=== PATIENT | male | born 1960 | race Caucasian/White ===

== ENCOUNTER 2016-03-31 16:02 | Inpatient (IN) ==
[2016-03-31] MEDS ORDERED: 0.9 % Sodium Chloride 1,000 ML IVC ONE (16:11)
--- NOTE | 2016-03-31 16:11 | Emergency Department Note ---
Disposition Clinical Impression: Acute diverticulitis Disposition: Admitted As Inpatient Condition: Good Time of Disposition: 16:53 Abdominal Pain HPI - General Chief Complaint: ED Abdominal Pain Stated Complaint: Abdominal Pain Time Seen by Provider: 03/31/16 16:06 Source: patient, EMS Limitations: no limitations Nursing Notes Reviewed: Yes Vital Signs Reviewed: Yes - History of Present Illness HPI Narrative: 56-year-old 3 day history of abdominal pain. No history of abdominal complaints in the past. Pt Subjective Complaint: abdominal pain Onset (ago): day(s) Consistency: constant Location: diffuse (3) Pain Scale: 6 Quality: cramping, aching Radiation: none Migration to: no migration Improves with: nothing - Related Data Home Medications Medication Instructions Recorded Confirmed Escitalopram [Lexapro] 10 mg PO DAILY 07/26/15 03/31/16 Cholecalciferol (D-3) [Vitamin D] 5,000 unit PO DAILY 03/31/16 03/31/16 Flaxseed Oil 1,000 mg PO DAILY 03/31/16 03/31/16 Metoprolol XL (24 HR) Succ [Toprol 25 mg PO DAILY 03/31/16 03/31/16 XL] Multivit-Min/FA/Lycopen/Lutein 1 each PO DAILY 03/31/16 03/31/16 [Centrum Silver Men Tablet] Polyethylene Glycol 3350 [MiraLAX] 17 gm PO 1-2XD PRN 03/31/16 03/31/16 Previous Rx's Medication Instructions Recorded Aspirin Enteric Coated [Aspirin EC] 81 mg PO DAILY #30 tablet. 07/28/15 Atorvastatin [Lipitor] 40 mg PO HS #30 tablet 07/28/15 Clopidogrel [Plavix] 75 mg PO DAILY #30 tablet 07/28/15 Lisinopril [Zestril] 2.5 mg PO DAILY #30 tablet 07/28/15 Nitroglycerin 0.4 mg SL Q5MIN PRN #30 tab.subl 07/28/15 Allergies Allergy/AdvReac Type Severity Reaction Status Date / Time No Known Allergies Allergy Verified 07/26/15 05:30 Constitutional: Denies: fever, chills, weakness, weight change Eyes: Denies: eye pain, eye discharge, vision change ENT ED: Denies: ear pain, throat pain, dental pain, hearing loss, epistaxis, congestion, dysphagia Cardiovascular: Denies: chest pain, palpitations, dyspnea on exertion, edema, syncope Respiratory: Denies: cough, dyspnea, wheezes, hemoptysis, stridor Gastrointestinal: Reports: abdominal pain. Denies: nausea, vomiting, diarrhea, constipation, hematemesis, melena, hematochezia Genitourinary: Denies: urgency, dysuria, frequency, hematuria Musculoskeletal: Denies: back pain, neck pain, arthralgia, myalgia Integumentary: Denies: rash, abrasion, lesions Neurological: Denies: headache, weakness, numbness, paresthesias, confusion, abnormal gait, vertigo Psychiatric: Denies: anxiety, depression, suicidal thoughts, homicidal thoughts , auditory hallucinations, visual hallucinations Endocrine: Denies: fatigue Hematological/Lymphatic: Denies: easy bleeding, easy bruising Allergic/Immunologic: Denies: facial swelling, urticaria Abdominal Pain PMH - Past Medical History Medical history: Reports: coronary artery disease, hyperlipidemia, hypertension , myocardial infarction Male Surgical History: Reports: angioplasty/stent Psychiatric history: Reports: depression - Social History Smoking status: Current every day smoker Alcohol use: Reports: none Drug use: Reports: none Physical Exam - General Limitations: no limitations General appearance: alert - Head Head exam: atraumatic, normocephalic, normal inspection - Eye Eye exam: Present: normal appearance, PERRL, EOMI - ENT ENT exam: normal exam, normal oropharynx, mucous membranes moist - Neck Neck exam: Present: normal inspection, full ROM, trachea midline - Chest Chest inspection: Present: normal inspection, symmetric chest wall rise - Respiratory Respiratory exam: Present: normal lung sounds bilaterally - Cardiovascular Cardiovascular exam: Present: normal rhythm, tachycardia, normal heart sounds - Abdominal Exam Abdominal exam: Present: tenderness. Absent: rebound Abdominal tenderness: Present: diffuse - Extremities Exam Extremities exam: Present: normal inspection, full ROM. Absent: tenderness, pedal edema - Expanded Lower Extremity Exam Hip/Pelvis exam: Present: full ROM Neurovascular/Tendon exam: Absent: motor deficit, sensory deficit, tendon deficit Gait: not tested/not observed - Back Exam Back exam: Present: normal inspection - Neurological Exam Neurological exam: Present: alert, oriented X3 - Psychiatric Psychiatric exam: Present: normal affect, normal mood - Skin Skin exam: Present: warm, dry, intact, normal color Course - Reevaluation(s) Reevaluation #1: Patient comes in complaining of abdominal pain with diffuse tenderness on exam. CT scan shows acute diverticulitis with 2 areas of fluid collection and some micro-air which appears to be a contained microperforation. Case was discussed with surgery does not feels a surgical problem at the moment admitted to the hospital summary will consult. Time: 16:56 - Consultations Consultation #1: Discussed with Dr. Diaz, admit to hospitalist consult surgery. Time: 16:55 Consultation #2: Discussed with , admit. Time: 17:40 Vital Signs Temperature 98.5 F 03/31/16 16:03 Pulse Rate 128 03/31/16 16:03 Respiratory Rate 18 03/31/16 16:03 Blood Pressure 118/75 03/31/16 16:03 O2 Sat by Pulse Oximetry 91 L 03/31/16 16:03 Temperature 98.5 F 03/31/16 16:03 Pulse Rate 117 03/31/16 17:29 Respiratory Rate 16 03/31/16 17:29 Blood Pressure 133/87 03/31/16 17:29 O2 Sat by Pulse Oximetry 93 L 03/31/16 17:29 Oxygen Delivery Oxygen Delivery Room Air Abdominal Pain - Lab Data Result diagrams: 03/31/16 17:00 03/31/16 17:00 Lab Results 03/31/16 03/31/16 03/31/16 Range/Units 17:00 17:00 17:00 WBC 17.1 H (4.3-11.1) K/mcL RBC 5.14 (4.19-5.50) M/mcL Hgb 16.4 (12.9-16.9) g/dL Hct 46.6 (37.5-50.1) % MCV 90.7 (83.0-100.0) fL MCH 31.9 (28.0-33.3) pg MCHC 35.2 (31.6-35.5) g/dL RDW 11.6 (11.5-14.5) % Plt Count 160 (140-400) K/mcL MPV 10.9 (9.4-12.4) fL Immature Gran % 0.7 (0-4) % Seg Neutrophils % 88.6 % Lymphocytes % 3.0 % Monocytes % 7.0 % Eosinophils % 0.3 % Basophils % 0.4 % Neutrophils # 15.2 H (1.6-8.9) K/mcL Lymphocytes # 0.5 L (0.6-4.6) K/mcL Monocytes # 1.2 (0.0-1.3) K/mcL Eosinophils # 0.1 (0.0-0.6) K/mcL Basophils # 0.1 (0.0-0.2) K/mcL Sodium 136 (136-145) mEq/L Potassium 3.8 (3.5-4.5) mEq/L Chloride 103 (98-109) mEq/L Carbon Dioxide 23 (19-29) mEq/L BUN 20 (8-26) mg/dL Creatinine 1.05 (0.72-1.25) mg/dL Est GFR ( Amer) > 60 (> 60) Est GFR (Non-Af Amer) > 60 (> 60) BUN/Creatinine Ratio 19 (6-26) Glucose 120 H (70-99) mg/dL Calculated Osmolality 286 (280-300) Lactic Acid 1.3 (0.5-2.2) mmol/L Calcium 9.2 (8.6-10.8) mg/dL Total Bilirubin 1.1 (0.2-1.2) mg/dL Direct Bilirubin 0.4 (0.0-0.5) mg/dL Indirect Bilirubin 0.7 (0.0-1.2) mg/dL AST 14 (5-34) Units/L ALT 15 (0-55) Units/L Alkaline Phosphatase 67 (38-126) Units/L Serum Total Protein 6.6 (6.0-8.3) g/dL Albumin 3.5 (3.5-5.0) g/dL Globulin 3.1 (2.4-3.5) g/dL Albumin/Globulin Ratio 1.1 (1.1-2.2) Amylase 31 (25-125) Units/L Lipase 27 (8-78) Units/L - Radiology Data Radiology results reviewed: Yes I reviewed the patient's radiology results. Abdomen/Pelvis CT 03/31/16 16:07 IMPRESSION: Findings as above consistent with acute diverticulitis with with small fluid collections in the pelvis which measure up to 4.9 x 4.5 cm likely related to contained perforation. 2 of these contain tiny foci of gas. Inflammatory change and mild edema within the pelvis and right pericolic gutter. Wall thickening involving the rectum which may be reactive. Atherosclerosis. D/ / Shyanne Caro MD / Shyanne Caro MD Interpreting Provider: Shyanne Caro MD - EKG Data EKG shows normal: sinus rhythm Rate: tachycardia Rhythm: NSR Interpretation: no acute changes
[2016-03-31] MEDS ORDERED: MetroNIDAZOLE 500 MG/100 ML 500 MG/100 ML BAG IVPB ONE (16:53)
[2016-03-31 17:07] LABS: Basophils # 0.1 K/mcL (0.0-0.2); Basophils % 0.4 %; Eosinophils # 0.1 K/mcL (0.0-0.6); Eosinophils % 0.3 %; Hematocrit 46.6 % (37.5-50.1); Hemoglobin 16.4 g/dL (12.9-16.9); Immature Granulocytes % 0.7 % (0-4); Lymphocytes # 0.5 K/mcL (0.6-4.6); Mean Corpuscular HGB Conc 35.2 g/dL (31.6-35.5); Mean Corpuscular Hemoglobin 31.9 pg (28.0-33.3); Mean Corpuscular Volume 90.7 fL (83.0-100.0); Mean Platelet Volume 10.9 fL (9.4-12.4); Monocytes # 1.2 K/mcL (0.0-1.3); Neutrophils # 15.2 K/mcL (1.6-8.9); Platelet Count 160 K/mcL (140-400); Red Blood Count 5.14 M/mcL (4.19-5.50); Red Cell Distribution Width 11.6 % (11.5-14.5); Segmented Neutrophils % 88.6 %
[2016-03-31 17:27] LABS: Alanine Aminotransferase 15 Units/L (0-55); Albumin 3.5 g/dL (3.5-5.0); Albumin/Globulin Ratio 1.1 (1.1-2.2); Alkaline Phosphatase 67 Units/L (38-126); Amylase 31 Units/L (25-125); Aspartate Amino Transferase 14 Units/L (5-34); BUN/Creatinine Ratio 19 (6-26); Bilirubin,Direct 0.4 mg/dL (0.0-0.5); Bilirubin,Indirect 0.7 mg/dL (0.0-1.2); Bilirubin,Total 1.1 mg/dL (0.2-1.2); Blood Urea Nitrogen 20 mg/dL (8-26); Calcium 9.2 mg/dL (8.6-10.8); Carbon Dioxide 23 mEq/L (19-29); Chloride 103 mEq/L (98-109); Globulin 3.1 g/dL (2.4-3.5); Glucose 120 mg/dL (70-99); Lipase 27 Units/L (8-78); Osmolality,Calculated 286 (280-300); Potassium 3.8 mEq/L (3.5-4.5); Sodium 136 mEq/L (136-145); Total Protein 6.6 g/dL (6.0-8.3); eGFR For African Americans > 60 (> 60); eGFR For Non-African Americans > 60 (> 60)
[2016-03-31] MEDS ORDERED: Naloxone 0.4 MG/ML INJ IVP PRN (19:27)
[2016-03-31] MEDS ORDERED: Ondansetron 4 MG/2 ML VIAL IVP PRN (19:30)
[2016-03-31] MEDS ORDERED: Nitroglycerin 0.4 MG TAB.SUBL SL PRN (20:05)
--- NOTE | 2016-03-31 20:15 | Internal Med History&Physical ---
Date of Encounter: 03/31/16 Time of Encounter: 20:07 Assessment and Plan (1) Acute diverticulitis Current visit: Yes Status: Acute [address] of abdomen with findings consistent with acute diverticulitis micro perforations - at present time we will make patient nothing by mouth 2 we will administer Invanz IV 3 we will monitor CBC 4. Morphine as needed for pain 5 consult surgery as needed (2) Coronary artery disease Current visit: No Status: Chronic 1 patient has history of [place] with stent placement 08/07. We will continue with aspirin and Plavix beta hiram statin and nitroglycerin as needed Qualifiers: Coronary Disease-Associated Artery/Lesion type: [place] artery [place] vs. transplanted heart: [place] heart Associated angina: without angina Qualified Code(s): I25.10 - Atherosclerotic heart disease of [place] coronary artery without angina pectoris (3) Hypertension Current visit: No Status: Chronic 1 presently controlled we will continue with metoprolol/lisinopril-goal is to maintain systolic less than 140 Qualifiers: Hypertension type: essential hypertension Qualified Code(s): I10 - Essential (primary) hypertension (4) Tobacco use Current visit: No Status: Chronic 1 patient has been attempting to quit on her own offered nicotine patch declined this time (5) DVT prophylaxis Current visit: Yes Status: Acute 1 [facility] Internal Medicine - H&P: HPI Chief complaint: abd pain Admitted From: Emergency Dept Plans for Post Hospital Care: Home History of present illness: Mr. Dumont is a 56 year old male with past medical history of hypertension [place] stent placement 08/07 and tobacco abuse. On Wednesday the patient began experiencing sharp to crampy diffuse abdominal pain which is aggravated with food and relieved with rest. He has experienced nausea and vomiting with no hemataemesis He denies any fevers or chills. He felt that he was initially constipated and took a laxative which worsened the pain. He denies any melena or hematochezia. He went to his primary care physician on Wednesday and had blood work as well as x-rays completed. He presented to the ER today with the above complaints. According to ER records the patient's white count was elevated at 17.1 he was tachycardic and afebrile. Lactic acid was 1.3 CT abdomen consistent with acute diverticulitis with micro perforations. According to records ER physician did speak with Dr. Diaz who did not feel surgical problem at the moment to Hospital services consult as needed. Presently the patient denies any pain or discomfort at this time. Upon assessment patient is tender to palpation across lower aspect of abdomen. He is hemodynamically stable at this time. I reviewed the case with Dr. Plascencia who agrees with plan Past Med Surg Social Fam HX - Past Medical History Medical history: coronary artery disease, hyperlipidemia, hypertension, myocardial infarction Psychiatric history: depression - Social History Smoking Status: Current every day smoker Smokeless Tobacco Status: No Alcohol use: none Drug use: none - Family History Father Adopted: No Family Member Ethnicity: Non- Living Status: Hx Family Cardiac Disorders: Yes (CABG) Hx Family Respiratory Disorders: Yes (lung CA) Hx Family Cancer: Yes (lung CA) Hx Family GI Disorders: No Hx Family Endocrine Disorder: No Hx Family Neuromuscular Disorders: No Hx Family Neurologic Disorders: No Hx Family HEENT Disorders: Yes (cataracts, deafness) Hx Family Autoimmune Disorders: No Internal Medicine - H&P: Meds Escitalopram [Lexapro] 10 mg PO DAILY 07/26/15 [History] Aspirin Enteric Coated [Aspirin EC] 81 mg PO DAILY #30 tablet. 07/28/15 [Rx] Atorvastatin [Lipitor] 40 mg PO HS #30 tablet 07/28/15 [Rx] Clopidogrel [Plavix] 75 mg PO DAILY #30 tablet 07/28/15 [Rx] Lisinopril [Zestril] 2.5 mg PO DAILY #30 tablet 07/28/15 [Rx] Nitroglycerin 0.4 mg SL Q5MIN PRN #30 tab.subl 07/28/15 [Rx] Cholecalciferol (D-3) [Vitamin D] 5,000 unit PO DAILY 03/31/16 [History] Flaxseed Oil 1,000 mg PO DAILY 03/31/16 [History] Metoprolol XL (24 HR) Succ [Toprol XL] 25 mg PO DAILY 03/31/16 [History] Multivit-Min/FA/Lycopen/Lutein [Centrum Silver Men Tablet] 1 each PO DAILY 03/31 [History] Polyethylene Glycol 3350 [MiraLAX] 17 gm PO 1-2XD PRN 03/31/16 [History] Allergies No Known Allergies Allergy (Verified 07/26/15 05:30) All Systems PM: A 10-system review of systems was performed and is negative for pertinent findings except as documented above in the HPI. - Cardiovascular Cardiovascular ROS IM: no chest pain, no diaphoresis, no dyspnea, no lightheadedness, no palpitations, no syncope - Respiratory Respiratory: no cough, no dyspnea, no wheezing, no excessive phlegm production - Gastrointestinal Gastrointestinal: abdominal pain, cramping, nausea, vomiting - Musculoskeletal Musculoskeletal ROS IM: no numbness, no tingling - Integumentary Integumentary IM: no rash, no unusual bruising - Neurological Neurological ROS: no confusion, no convulsions, no focal weakness, no numbness, no tingling, no tremor(s) - Constitutional Vitals: Temp Pulse Resp BP Pulse Ox 98.5 F 117 16 133/87 93 L 03/31/16 16:03 03/31/16 17:29 03/31/16 18:45 03/31/16 18:45 03/31/16 17:29 General appearance: Present: A&O X 3 - Head Head exam: Present: atraumatic, normocephalic - Eye Eye exam: Present: PERRL, conjuntiva pink, sclera anicteric Pupils: Present: PERRL - Respiratory Respiratory exam: Present: CTAB. Absent: accessory muscle use, rales, rhonchi, wheezes - Cardiovascular Cardiovascular exam: Present: RRR, +S1, +S2. Absent: diastolic murmur, gallop, rubs, systolic murmur - GI/Abdominal GI/Abdominal exam: Present: normal bowel sounds, soft, tenderness. Absent: distended Additional comments: Tender to palpation across the lower aspect of the abdomen-mostly right lower quadrant - Extremities Exam Extremities exam: Present: warm, radial pulses palpable and symetrical. Absent : calf tenderness, cyanotic, pedal edema - Neurological Exam Neurological exam: Present: CN II-XII intact, oriented X3, no focal deficits. Absent: pronater drift, facial droop, speech deficit - Skin Skin exam: Present: dry, intact Internal Med - H&P Results - Labs CBC & Chem 7: 03/31/16 17:00 03/31/16 17:00 - EKG Data EKG shows normal: sinus rhythm Rate: tachycardia - Diagnostic Studies CT scan - abdomen Additional comments: Per radiology read findings consistent with acute diverticulitis with small fluid collections in the pelvis which measure up to 4.9 x 4.5 cm likely related to contain perforations. 2 of these contain tiny foci of gas Inflammatory changes and mild edema in the pelvis and right paracolic gutter Wall thickening involving the rectum which may be reactive
[2016-03-31] MEDS ORDERED: 0.9 % Sodium Chloride Mini Bag 100 ML ONE (20:50)
[2016-03-31] MEDS: 0.9 % Sodium Chloride 1,000 ML IVC SCH (20:59)
[2016-03-31] MEDS: *HR* Morphine 2 MG/ML SYRINGE IVP PRN (21:09)
[2016-04-01] MEDS: *HR* Morphine 2 MG/ML SYRINGE IVP PRN (02:33)
[2016-04-01 06:07] LABS: Basophils # 0.1 K/mcL (0.0-0.2); Basophils % 0.4 %; Eosinophils # 0.1 K/mcL (0.0-0.6); Eosinophils % 0.9 %; Hematocrit 43.6 % (37.5-50.1); Hemoglobin 14.9 g/dL (12.9-16.9); Immature Granulocytes % 0.5 % (0-4); Lymphocytes # 0.7 K/mcL (0.6-4.6); Lymphocytes % 4.2 %; Mean Corpuscular HGB Conc 34.2 g/dL (31.6-35.5); Mean Corpuscular Hemoglobin 31.4 pg (28.0-33.3); Mean Corpuscular Volume 91.8 fL (83.0-100.0); Mean Platelet Volume 11.5 fL (9.4-12.4); Monocytes % 6.7 %; Neutrophils # 13.4 K/mcL (1.6-8.9); Platelet Count 147 K/mcL (140-400); Red Blood Count 4.75 M/mcL (4.19-5.50); Red Cell Distribution Width 11.6 % (11.5-14.5); Segmented Neutrophils % 87.3 %
[2016-04-01 06:24] LABS: BUN/Creatinine Ratio 18 (6-26); Blood Urea Nitrogen 17 mg/dL (8-26); Calcium 8.6 mg/dL (8.6-10.8); Carbon Dioxide 24 mEq/L (19-29); Chloride 104 mEq/L (98-109); Glucose 124 mg/dL (70-99); Osmolality,Calculated 289 (280-300); Potassium 3.8 mEq/L (3.5-4.5); Sodium 138 mEq/L (136-145); eGFR For African Americans > 60 (> 60); eGFR For Non-African Americans > 60 (> 60)
[2016-04-01] MEDS: *HR* Enoxaparin 40 MG/0.4 ML SYRINGE SQ SCH (06:25)
--- NOTE | 2016-04-01 09:15 | General Surgery Consult Note ---
<Keenan Moran - Last Filed: 04/01/16 17:38> Date of Encounter: 04/01/16 Time of Encounter: 08:35 Assessment and Plan (1) Acute diverticulitis Current Visit: Yes Status: Acute CT of abdomen with findings consistent with acute diverticulitis with microperforations NPO except ice and PO meds, may be able to advance to clears later in the day. Medicine service switched IV antibiotics to PO Supportive care/ pain control Serial abdominal exams Monitor vitals and AM labs. (2) Leukocytosis Current Visit: Yes Status: Acute Improving, 17.1>15.3 Afebrile Continue antibiotics. (3) Coronary artery disease Current Visit: No Status: Chronic s/p stent placement 07/2015. On ASA and plavix Management per medicine service Qualifiers: Coronary Disease-Associated Artery/Lesion type: [place] artery [place] vs. transplanted heart: [place] heart Associated angina: without angina Qualified Code(s): I25.10 - Atherosclerotic heart disease of [place] coronary artery without angina pectoris (4) Hypertension Current Visit: No Status: Chronic Management per medicine service Qualifiers: Hypertension type: essential hypertension Qualified Code(s): I10 - Essential (primary) hypertension (5) DVT prophylaxis Current Visit: Yes Status: Acute Lovenox SQ daily History of Present Illness Consult date: 04/01/16 Reason for consult: abdominal pain History of present illness: Mr. Dumont is a 56 year old male with PMHx HTN, HLD, [place] s/p stent placement 08/07 , and tobacco abuse. Patient states abdominal pain was bothersome starting Wednesday (maybe have some discomfort prior); pain described as sharp to crampy pain worse across lower abdomen. Worse with food, relieved with rest. Patient noted nausea and vomiting on Wednesday, denies any blood with emesis. Denies fevers, chills, dizziness, blood in stool. In the ED patient found to have elevated WBC at 17.1, lactate 1.3, and CT showing acute diverticulitis with micro perforations. Past Med Surg Social Fam HX - Past Medical History Source: patient Medical history: coronary artery disease, hyperlipidemia, hypertension, myocardial infarction Psychiatric history: depression - Past Surgical History Surgical History: angioplasty/stent (08/07) - Social History Smoking Status: Current every day smoker Smokeless Tobacco Status: No Alcohol use: none Drug use: none - Family History Father Adopted: No Family Member Ethnicity: Non- Living Status: Hx Family Cardiac Disorders: Yes (CABG) Hx Family Respiratory Disorders: Yes (lung CA) Hx Family Cancer: Yes (lung CA) Hx Family GI Disorders: No Hx Family Endocrine Disorder: No Hx Family Neuromuscular Disorders: No Hx Family Neurologic Disorders: No Hx Family HEENT Disorders: Yes (cataracts, deafness) Hx Family Autoimmune Disorders: No Medications and Allergies Escitalopram [Lexapro] 10 mg PO DAILY 07/26/15 [History] Aspirin Enteric Coated [Aspirin EC] 81 mg PO DAILY #30 tablet.dr 07/28/15 [Rx] Atorvastatin [Lipitor] 40 mg PO HS #30 tablet 07/28/15 [Rx] Clopidogrel [Plavix] 75 mg PO DAILY #30 tablet 07/28/15 [Rx] Lisinopril [Zestril] 2.5 mg PO DAILY #30 tablet 07/28/15 [Rx] Nitroglycerin 0.4 mg SL Q5MIN PRN #30 tab.subl 07/28/15 [Rx] Cholecalciferol (D-3) [Vitamin D] 5,000 unit PO DAILY 03/31/16 [History] Flaxseed Oil 1,000 mg PO DAILY 03/31/16 [History] Metoprolol XL (24 HR) Succ [Toprol XL] 25 mg PO DAILY 03/31/16 [History] Multivit-Min/FA/Lycopen/Lutein [Centrum Silver Men Tablet] 1 each PO DAILY 03/31 [History] Polyethylene Glycol 3350 [MiraLAX] 17 gm PO 1-2XD PRN 03/31/16 [History] Ciprofloxacin HCl [Cipro] 500 mg PO BID #20 tablet 04/03/16 [Rx] MetroNIDAZOLE [Flagyl] 500 mg PO TID #30 tablet 04/03/16 [Rx] Allergies No Known Allergies Allergy (Verified 07/26/15 05:30) Review of Systems All systems PM: A 10-system review of systems was performed and is negative for pertinent findings except as documented above in the HPI. - Constitutional no chills, no fever(s) - EENT Nose, mouth and throat: no dizziness, no dysphagia - Cardiovascular no chest pain, no palpitations - Respiratory no dyspnea - Gastrointestinal abdominal pain, cramping, nausea, vomiting, no hematemesis, no hematochezia, no melena - Genitourinary no dysuria, no flank pain - Musculoskeletal no back pain - Integumentary no rash - Neurological no dizziness, no weakness - Endocrine no flushing General Surgery Exam Initial Vital Signs Temp Pulse Resp BP Pulse Ox 98.5 F 128 18 118/75 91 L 03/31/16 16:03 03/31/16 16:03 03/31/16 16:03 03/31/16 16:03 03/31/16 16:03 - General physical appearance well developed, well nourished, no distress - Eyes normal ocular movement - ENT normal mucosa, atraumatic, normocephalic - Neck trachea midline - Respiratory normal respiratory effort, clear to auscultation - Cardiovascular Cardiovascular exam: Present: RRR, tachycardia - Abdomen Abdomen general surgery: Present: bowel sounds present, soft, tender (RUQ/RLQ). Absent: distended, guarding - Integumentary Integumentary general surgery: Present: warm and dry - Neurologic Present: CN 2-12 grossly intact - Psychiatric Psychiatric general surgery: Present: A&Ox3, speech is normal, memory intact Exam Initial Vital Signs Temp Pulse Resp BP Pulse Ox 98.5 F 128 18 118/75 91 L 03/31/16 16:03 03/31/16 16:03 03/31/16 16:03 03/31/16 16:03 03/31/16 16:03 Results - Labs 04/01/16 04:40 04/01/16 04:40 Abnormal lab results WBC 15.3 K/mcL (4.3-11.1) H 04/01/16 04:40 Neutrophils # 13.4 K/mcL (1.6-8.9) H 04/01/16 04:40 Glucose 124 mg/dL (70-99) H 04/01/16 04:40 Diabetes panel 04/01/16 Range/Units 04:40 Sodium 138 (136-145) mEq/L Potassium 3.8 (3.5-4.5) mEq/L Chloride 104 (98-109) mEq/L Carbon Dioxide 24 (19-29) mEq/L BUN 17 (8-26) mg/dL Creatinine 0.92 (0.72-1.25) mg/dL Glucose 124 H (70-99) mg/dL Calcium 8.6 (8.6-10.8) mg/dL Calcium panel 04/01/16 Range/Units 04:40 Calcium 8.6 (8.6-10.8) mg/dL Pituitary panel 04/01/16 Range/Units 04:40 Sodium 138 (136-145) mEq/L Potassium 3.8 (3.5-4.5) mEq/L Chloride 104 (98-109) mEq/L Carbon Dioxide 24 (19-29) mEq/L BUN 17 (8-26) mg/dL Creatinine 0.92 (0.72-1.25) mg/dL Glucose 124 H (70-99) mg/dL Calcium 8.6 (8.6-10.8) mg/dL Adrenal panel 04/01/16 Range/Units 04:40 Sodium 138 (136-145) mEq/L Potassium 3.8 (3.5-4.5) mEq/L Chloride 104 (98-109) mEq/L Carbon Dioxide 24 (19-29) mEq/L BUN 17 (8-26) mg/dL Creatinine 0.92 (0.72-1.25) mg/dL Glucose 124 H (70-99) mg/dL Calcium 8.6 (8.6-10.8) mg/dL All other labs normal. Consult Discharge Plan - Plan Additional Instructions: Low residue diet for the next 6-8 weeks Referrals: Fawad Roth MD [Primary Care Provider] - 04/10/16 2:00 pm Christopher Diaz MD [Partnered Physician] - 04/16/16 4:15 pm (hospital follow- up) Prescriptions: Ciprofloxacin HCl [Cipro] 500 mg PO BID #20 tablet MetroNIDAZOLE [Flagyl] 500 mg PO TID #30 tablet <Christopher Diaz - Last Filed: 04/03/16 16:21> Date of Encounter: 04/03/16 Review of Systems All systems PM: A 10-system review of systems was performed and is negative for pertinent findings except as documented above in the HPI. General Surgery Exam Initial Vital Signs Temp Pulse Resp BP Pulse Ox 98.5 F 128 18 118/75 91 L 03/31/16 16:03 03/31/16 16:03 03/31/16 16:03 03/31/16 16:03 03/31/16 16:03 Exam Initial Vital Signs Temp Pulse Resp BP Pulse Ox 98.5 F 128 18 118/75 91 L 03/31/16 16:03 03/31/16 16:03 03/31/16 16:03 03/31/16 16:03 03/31/16 16:03 Results - Labs 04/03/16 04:19 04/03/16 04:19 Abnormal lab results WBC 15.3 K/mcL (4.3-11.1) H 04/01/16 04:40 Neutrophils # 13.4 K/mcL (1.6-8.9) H 04/01/16 04:40 Glucose 124 mg/dL (70-99) H 04/01/16 04:40 POC Glucose 115 (58-89) H 04/01/16 11:00 Diabetes panel 04/01/16 Range/Units 04:40 Sodium 138 (136-145) mEq/L Potassium 3.8 (3.5-4.5) mEq/L Chloride 104 (98-109) mEq/L Carbon Dioxide 24 (19-29) mEq/L BUN 17 (8-26) mg/dL Creatinine 0.92 (0.72-1.25) mg/dL Glucose 124 H (70-99) mg/dL Calcium 8.6 (8.6-10.8) mg/dL Calcium panel 04/01/16 Range/Units 04:40 Calcium 8.6 (8.6-10.8) mg/dL Pituitary panel 04/01/16 Range/Units 04:40 Sodium 138 (136-145) mEq/L Potassium 3.8 (3.5-4.5) mEq/L Chloride 104 (98-109) mEq/L Carbon Dioxide 24 (19-29) mEq/L BUN 17 (8-26) mg/dL Creatinine 0.92 (0.72-1.25) mg/dL Glucose 124 H (70-99) mg/dL Calcium 8.6 (8.6-10.8) mg/dL Adrenal panel 04/01/16 Range/Units 04:40 Sodium 138 (136-145) mEq/L Potassium 3.8 (3.5-4.5) mEq/L Chloride 104 (98-109) mEq/L Carbon Dioxide 24 (19-29) mEq/L BUN 17 (8-26) mg/dL Creatinine 0.92 (0.72-1.25) mg/dL Glucose 124 H (70-99) mg/dL Calcium 8.6 (8.6-10.8) mg/dL All other labs normal. - Attending Attestation I examined this patient and my medical decision-making was reviewed with the [employer]IC/PA/Advanced Practice Nurse/Resident Physician. I agree with the documented findings, disposition and treatment plan as described except to the extent set forth below. I reviewed the results of the physical exam and assessment. Evaluate the patient personally. Noted symptoms of pelvic and left lower quadrant pain that has radiated generalized throughout the abdomen. No fever or chills and intermittent diarrhea constipation symptoms. Positive pain to palpation in the bilateral lower quadrants and mildly in the upper abdominal region. Decreased leukocytosis and I personally reviewed the CT scan images show a diverticulitis with evidence of microperforation and fluid collection/abscess. I agree with current therapy of IV antibiotics and bowel rest however I will allow the patient have clear liquids as time. Continue with serial abdominal examinations and daily CBC.
[2016-04-01] MEDS ORDERED: 0.9 % Sodium Chloride Mini Bag 100 ML ONE (09:57)
[2016-04-01] MEDS: Metoprolol XL (24 HR) Succ 25 MG TAB.ER.24H PO SCH (09:59)
[2016-04-01] MEDS: Multivit/Ca/Min/Fe/FA 1 TAB TABLET PO SCH (09:59)
[2016-04-01] MEDS: Aspirin Enteric Coated 81 MG Tablet PO SCH (09:59)
[2016-04-01] MEDS: Nicotine 7 MG PATCH.TD24 TD SCH (10:00)
--- NOTE | 2016-04-01 10:56 | Electrocardiograph Report ---
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
--- NOTE | 2016-04-01 12:01 | Internal Med Progress Note ---
Date of Encounter: 04/01/16 Time of Encounter: 11:59 - Assessment and plan (1) Acute diverticulitis Current Visit: Yes Status: Acute Assessment and plan: Surgical eval appreciated responding well to IV abx reports of having last colonoscopy 4-5years ago and states he knows he is due for one now will continue IV abx (Cipro and Flagyl) advance to clear liquid diet pain control zofran prn n/v (2) Coronary artery disease Current Visit: No Status: Chronic Assessment and plan: no signs of angina present at this time will continue home medications Qualifiers: Coronary Disease-Associated Artery/Lesion type: [place] artery [place] vs. transplanted heart: [place] heart Associated angina: without angina Qualified Code(s): I25.10 - Atherosclerotic heart disease of [place] coronary artery without angina pectoris (3) Hyperlipidemia Current Visit: No Status: Chronic Assessment and plan: continue home medications Qualifiers: Hyperlipidemia type: unspecified Qualified Code(s): E78.5 - Hyperlipidemia , unspecified (4) Hypertension Current Visit: No Status: Chronic Assessment and plan: BP within acceptable range continue home medications Qualifiers: Hypertension type: essential hypertension Qualified Code(s): I10 - Essential (primary) hypertension (5) Tobacco use Current Visit: No Status: Chronic Assessment and plan: smoking cessation counseling provided reports of trying to quit refused nicotine replacement therapy (6) DVT prophylaxis Current Visit: Yes Status: Acute - Subjective Interval history: Patient seen and examined at bedside. Resting in bed and reports of improvement in his abdominal pain with complete resolution of her nausea. - Constitutional Vitals: Temp Pulse Resp BP Pulse Ox 99.3 F 105 14 126/79 93 L 04/01/16 11:01 04/01/16 11:01 04/01/16 11:01 04/01/16 11:01 04/01/16 11:01 General appearance: Present: A&O X 3, no acute distress, obese, answers questions appropriately - Head Head exam: Present: atraumatic, normocephalic - Eye Eye exam: Present: conjuntiva pink, sclera anicteric - Respiratory Respiratory exam: Present: CTAB. Absent: respiratory distress, wheezes - Cardiovascular Cardiovascular exam: Present: RRR, +S1, +S2 - GI/Abdominal GI/Abdominal exam: Present: distended (obese), normal bowel sounds, soft, tenderness (diffuse tenderness on deep palpation), no peritoneal signs. Absent : guarding - Extremities Exam Extremities exam: Present: warm, radial pulses palpable and symetrical. Absent : calf tenderness, pedal edema, tenderness - Neurological Exam Neurological exam: Present: alert, oriented X3 - Psychiatric Psychiatric exam: Present: normal affect, normal mood Internal Medicine: Result - Labs CBC & Chem 7: 04/01/16 04:40 04/01/16 04:40 Labs: Short CBC 04/01/16 Range/Units 04:40 WBC 15.3 H (4.3-11.1) K/mcL Hgb 14.9 D (12.9-16.9) g/dL Hct 43.6 (37.5-50.1) % Plt Count 147 (140-400) K/mcL Neutrophils # 13.4 H (1.6-8.9) K/mcL BMP 04/01/16 04:40 Sodium 138 Potassium 3.8 Chloride 104 Carbon Dioxide 24 BUN 17 Creatinine 0.92 Glucose 124 H Calcium 8.6 Consult Discharge Plan - Plan Referrals: Fawad Roth MD [Primary Care Provider] -
[2016-04-01] MEDS: 0.9 % Sodium Chloride 1,000 ML IVC SCH (13:25)
[2016-04-01] MEDS: MetroNIDAZOLE 500 MG/100 ML 500 MG/100 ML BAG IVPB SCH (15:22)
[2016-04-01 18:02] LABS: Bilirubin,Urine Negative (Negative); Blood,Urine Negative (Negative); Clarity,Urine Clear (Clear); Color,Urine Dark Yellow (Yellow); Glucose,Urine (UA) Normal (Normal); Ketones,Urine Trace mg/dL (Negative); Leukocyte Esterase,Urine Negative (Negative); Nitrite,Urine Negative (Negative); PH,Urine 5.5 pH Units (5.0-8.0); Protein,Urine 30 mg/dL (Neg-Trace); Specific Gravity,Urine 1.026 (1.010-1.025); Urobilinogen,Urine Normal (Normal)
[2016-04-01 18:06] LABS: Bacteria,Urine None Seen per hpf (None-Few); Hyaline Casts,Urine None Seen per lpf (None-Few); RBC,Urine 0-3 per hpf (0-3); Squamous Epithelial Cell,Urine Few per lpf (None-Few); WBC,Urine 0-3 per hpf (0-3)
[2016-04-02] MEDS: MetroNIDAZOLE 500 MG/100 ML 500 MG/100 ML BAG IVPB SCH ×4 (00:03→23:25)
[2016-04-02] MEDS: *HR* Morphine 2 MG/ML SYRINGE IVP PRN ×2 (00:09→04:21)
[2016-04-02 04:45] LABS: Basophils # 0.1 K/mcL (0.0-0.2); Basophils % 0.5 %; Eosinophils # 0.1 K/mcL (0.0-0.6); Eosinophils % 0.9 %; Hematocrit 40.4 % (37.5-50.1); Hemoglobin 14.2 g/dL (12.9-16.9); Immature Granulocytes % 1.6 % (0-4); Lymphocytes # 0.7 K/mcL (0.6-4.6); Lymphocytes % 4.7 %; Mean Corpuscular HGB Conc 35.1 g/dL (31.6-35.5); Mean Corpuscular Hemoglobin 32.6 pg (28.0-33.3); Mean Corpuscular Volume 92.7 fL (83.0-100.0); Mean Platelet Volume 11.4 fL (9.4-12.4); Monocytes # 1.1 K/mcL (0.0-1.3); Monocytes % 7.6 %; Neutrophils # 12.6 K/mcL (1.6-8.9); Platelet Count 153 K/mcL (140-400); Red Blood Count 4.36 M/mcL (4.19-5.50); Red Cell Distribution Width 11.4 % (11.5-14.5); Segmented Neutrophils % 84.7 %
[2016-04-02 04:54] LABS: BUN/Creatinine Ratio 16 (6-26); Blood Urea Nitrogen 15 mg/dL (8-26); Calcium 8.9 mg/dL (8.6-10.8); Carbon Dioxide 27 mEq/L (19-29); Chloride 102 mEq/L (98-109); Glucose 111 mg/dL (70-99); Magnesium 1.5 mg/dL (1.6-2.6); Osmolality,Calculated 286 (280-300); Phosphorous 3.5 mg/dL (2.3-4.7); Potassium 4.2 mEq/L (3.5-4.5); Sodium 137 mEq/L (136-145); eGFR For African Americans > 60 (> 60); eGFR For Non-African Americans > 60 (> 60)
[2016-04-02] MEDS: *HR* Enoxaparin 40 MG/0.4 ML SYRINGE SQ SCH (05:56)
[2016-04-02] MEDS ORDERED: Magnesium Sulfate 1 GM in D5% in Water 100 ML IVPB ONE (08:05)
[2016-04-02] MEDS: Metoprolol XL (24 HR) Succ 25 MG TAB.ER.24H PO SCH (08:52)
[2016-04-02] MEDS: Multivit/Ca/Min/Fe/FA 1 TAB TABLET PO SCH (08:52)
[2016-04-02] MEDS: Aspirin Enteric Coated 81 MG Tablet PO SCH (08:52)
[2016-04-02] MEDS: Nicotine 7 MG PATCH.TD24 TD SCH (08:53)
[2016-04-02] MEDS ORDERED: Ertapenem 1,000 MG in 0.9 % Sodium Chloride Mini Bag 100 ML IVPB SCH (09:00)
--- NOTE | 2016-04-02 11:23 | Internal Med Progress Note ---
Date of Encounter: 04/02/16 Time of Encounter: 11:21 - Assessment and plan (1) Acute diverticulitis Current Visit: Yes Status: Acute Assessment and plan: Surgical eval appreciated responding well to IV abx reports of having last colonoscopy 4-5years ago and states he knows he is due for one now will continue IV abx (Cipro and Flagyl) Will continue clear liquid diet for now and re-evaluate in am, will advance diet as patient clinically improves pain control zofran prn n/v (2) Coronary artery disease Current Visit: No Status: Chronic Assessment and plan: no signs of angina present at this time will continue home medications Qualifiers: Coronary Disease-Associated Artery/Lesion type: [place] artery [place] vs. transplanted heart: [place] heart Associated angina: without angina Qualified Code(s): I25.10 - Atherosclerotic heart disease of [place] coronary artery without angina pectoris (3) Hyperlipidemia Current Visit: No Status: Chronic Assessment and plan: continue home medications Qualifiers: Hyperlipidemia type: unspecified Qualified Code(s): E78.5 - Hyperlipidemia , unspecified (4) Hypertension Current Visit: No Status: Chronic Assessment and plan: BP within acceptable range continue home medications Qualifiers: Hypertension type: essential hypertension Qualified Code(s): I10 - Essential (primary) hypertension (5) Tobacco use Current Visit: No Status: Chronic Assessment and plan: smoking cessation counseling provided reports of trying to quit refused nicotine replacement therapy (6) DVT prophylaxis Current Visit: Yes Status: Acute Assessment and plan: Lovenox SQ - Subjective Interval history: Patient seen and examined at bedside. Resting in bed and reports of improvement in his abdominal pain with complete resolution of her nausea. States there is still mild discomfort with clear liquid diet. No other complains at this time. - Constitutional Vitals: Temp Pulse Resp BP Pulse Ox 98.4 F 91 14 131/83 93 L 04/02/16 06:53 04/02/16 06:53 04/02/16 06:53 04/02/16 06:53 04/02/16 06:53 General appearance: Present: A&O X 3, no acute distress, obese, answers questions appropriately - Head Head exam: Present: atraumatic, normocephalic - Eye Eye exam: Present: normal appearance, conjuntiva pink, sclera anicteric - Respiratory Respiratory exam: Present: CTAB. Absent: respiratory distress, wheezes - Cardiovascular Cardiovascular exam: Present: RRR, +S1, +S2 - GI/Abdominal GI/Abdominal exam: Present: normal bowel sounds, soft, tenderness (RLQ tenderness with deep palpation ) - Extremities Exam Extremities exam: Present: warm, radial pulses palpable and symetrical. Absent : calf tenderness, pedal edema - Neurological Exam Neurological exam: Present: alert, oriented X3 - Psychiatric Psychiatric exam: Present: normal affect, normal mood Internal Medicine: Result - Labs CBC & Chem 7: 04/02/16 04:05 04/02/16 04:05 Labs: Short CBC 04/02/16 Range/Units 04:05 WBC 14.8 H (4.3-11.1) K/mcL Hgb 14.2 (12.9-16.9) g/dL Hct 40.4 (37.5-50.1) % Plt Count 153 (140-400) K/mcL Neutrophils # 12.6 H (1.6-8.9) K/mcL BMP 04/02/16 04:05 Sodium 137 Potassium 4.2 Chloride 102 Carbon Dioxide 27 BUN 15 Creatinine 0.95 Glucose 111 H Calcium 8.9 Urine 04/01/16 Range/Units 17:40 Urine Color Dark Yellow (Yellow) Urine Clarity Clear (Clear) Urine pH 5.5 (5.0-8.0) pH Units Ur Specific [place] 1.026 H (1.010-1.025) Urine Protein 30 H (Neg-Trace) mg/dL Urine Glucose (UA) Normal (Normal) mg/dL Consult Discharge Plan - Plan Referrals: Fawad Roth MD [Primary Care Provider] -
--- NOTE | 2016-04-02 17:47 | General Surgery Progress Note ---
Date of Encounter: 04/02/16 Time of Encounter: 17:47 - Assessment and Plan (1) Acute diverticulitis Current Visit: Yes Status: Acute Overall the patient continues to improve. Leukocytosis has decreased in temperature remained stable. Recommend continue clear liquids for today and continue with IV antibiotics. We will continue with serial abdominal exams. Subjective Patient reports: other (Patient states that the pain has improved. No nausea or vomiting.) Objective Vital Signs - Last 8 Hours Temp Pulse Resp BP Pulse Ox 04/02/16 15:59 98.7 F 87 16 146/81 95 04/02/16 11:39 97.9 F 84 18 129/77 94 L Intake and Output 04/02/16 04/02/16 04/02/16 07:59 15:59 23:59 Intake Total 600 / 600 1580 / 1580 Output Total 250 / 250 Balance 600 / 600 1330 / 1330 Intake: IV Fluids 300 / 300 Cipro 400 MG/200 ML 400 200 / 200 mg In 200 ml @ 200 mls/hr IVPB Q12HR [facility] Rx#: [id number] Flagyl 500 MG/100 ML 500 100 / 100 mg In 100 ml @ 100 mls/hr IVPB Q8HR [facility] Rx#: [id number] Oral 300 / 300 1580 / 1580 Output: Urine 250 / 250 Other: Meal Breakfast # Voids 1 Weight 119.522 kg Patient Weight 04/02/16 23:59 Weight 119.522 kg - Abdomen Abdomen: Present: soft, tender (Right lower abdomen greater than left. No masses.) - Labs 04/02/16 04:05 04/02/16 04:05 Diabetes panel 04/02/16 Range/Units 04:05 Sodium 137 (136-145) mEq/L Potassium 4.2 (3.5-4.5) mEq/L Chloride 102 (98-109) mEq/L Carbon Dioxide 27 (19-29) mEq/L BUN 15 (8-26) mg/dL Creatinine 0.95 (0.72-1.25) mg/dL Glucose 111 H (70-99) mg/dL Calcium 8.9 (8.6-10.8) mg/dL Calcium panel 04/02/16 Range/Units 04:05 Calcium 8.9 (8.6-10.8) mg/dL Phosphorus 3.5 (2.3-4.7) mg/dL Pituitary panel 04/02/16 Range/Units 04:05 Sodium 137 (136-145) mEq/L Potassium 4.2 (3.5-4.5) mEq/L Chloride 102 (98-109) mEq/L Carbon Dioxide 27 (19-29) mEq/L BUN 15 (8-26) mg/dL Creatinine 0.95 (0.72-1.25) mg/dL Glucose 111 H (70-99) mg/dL Calcium 8.9 (8.6-10.8) mg/dL Adrenal panel 04/02/16 Range/Units 04:05 Sodium 137 (136-145) mEq/L Potassium 4.2 (3.5-4.5) mEq/L Chloride 102 (98-109) mEq/L Carbon Dioxide 27 (19-29) mEq/L BUN 15 (8-26) mg/dL Creatinine 0.95 (0.72-1.25) mg/dL Glucose 111 H (70-99) mg/dL Calcium 8.9 (8.6-10.8) mg/dL Consult Discharge Plan - Plan Referrals: Fawad Roth MD [Primary Care Provider] -
[2016-04-03 04:37] LABS: Basophils # 0.1 K/mcL (0.0-0.2); Basophils % 0.7 %; Eosinophils # 0.2 K/mcL (0.0-0.6); Eosinophils % 1.8 %; Hematocrit 39.1 % (37.5-50.1); Hemoglobin 13.9 g/dL (12.9-16.9); Lymphocytes # 0.8 K/mcL (0.6-4.6); Lymphocytes % 7.3 %; Mean Corpuscular HGB Conc 35.5 g/dL (31.6-35.5); Mean Corpuscular Hemoglobin 31.7 pg (28.0-33.3); Mean Corpuscular Volume 89.3 fL (83.0-100.0); Monocytes # 1.1 K/mcL (0.0-1.3); Monocytes % 10.1 %; Neutrophils # 8.1 K/mcL (1.6-8.9); Platelet Count 146 K/mcL (140-400); Red Blood Count 4.38 M/mcL (4.19-5.50); Red Cell Distribution Width 11.1 % (11.5-14.5); Segmented Neutrophils % 77.1 %
[2016-04-03 04:56] LABS: BUN/Creatinine Ratio 11 (6-26); Blood Urea Nitrogen 10 mg/dL (8-26); Calcium 8.7 mg/dL (8.6-10.8); Carbon Dioxide 25 mEq/L (19-29); Chloride 104 mEq/L (98-109); Glucose 112 mg/dL (70-99); Magnesium 1.6 mg/dL (1.6-2.6); Osmolality,Calculated 284 (280-300); Phosphorous 3.9 mg/dL (2.3-4.7); Potassium 3.6 mEq/L (3.5-4.5); Sodium 137 mEq/L (136-145); eGFR For African Americans > 60 (> 60); eGFR For Non-African Americans > 60 (> 60)
[2016-04-03] MEDS: *HR* Enoxaparin 40 MG/0.4 ML SYRINGE SQ SCH (06:44)
[2016-04-03] MEDS: Aspirin Enteric Coated 81 MG Tablet PO SCH (09:26)
[2016-04-03] MEDS: Multivit/Ca/Min/Fe/FA 1 TAB TABLET PO SCH (09:26)
[2016-04-03] MEDS: Metoprolol XL (24 HR) Succ 25 MG TAB.ER.24H PO SCH (09:27)
[2016-04-03] MEDS: Nicotine 7 MG PATCH.TD24 TD SCH (09:27)
[2016-04-03] MEDS: MetroNIDAZOLE 500 MG/100 ML 500 MG/100 ML BAG IVPB SCH ×3 (09:28→23:29)
--- NOTE | 2016-04-03 12:07 | General Surgery Progress Note ---
Date of Encounter: 04/03/16 Time of Encounter: 11:45 - Assessment and Plan (1) Acute diverticulitis Current Visit: Yes Status: Acute Advance to full liquid diet May advance to low residue diet as tolerated Will need interval colonoscopy in 6-8 weeks Appointment scheduled for 04/16/[address] Diaz Surgery will sign off at this time. Thank you for allowing us to participate in the care of this patient. Please call with any further questions/concerns. Subjective Patient reports: no new complaints, feels better, still having pain, pain is less, voiding w/o difficulty, flatus, bowel movement, afebrile Objective Vital Signs - Last 8 Hours Temp Pulse Resp BP Pulse Ox 04/03/16 11:14 97.9 F 78 15 132/75 96 04/03/16 07:35 98.1 F 84 15 138/78 93 L Intake and Output 04/02/16 04/03/16 04/03/16 23:59 07:59 15:59 Intake Total 1940 / 1940 1100 / 1100 1340 / 1340 Output Total 1075 / 1075 550 / 550 700 / 700 Balance 865 / 865 550 / 550 640 / 640 Intake: IV Fluids 1100 / 1100 500 / 500 1100 / 1100 0.45% Sodium Chloride 1000 / 1000 1000 / 1000 1000 Ml 1000 Ml 1,000 ML @ 100 mls/hr IVC .Q10H [facility] Rx#:[id number] Cipro 400 MG/200 ML 400 400 / 400 mg In 200 ml @ 200 mls/hr IVPB Q12HR [facility] Rx#: [id number] Flagyl 500 MG/100 ML 500 100 / 100 100 / 100 100 / 100 mg In 100 ml @ 100 mls/hr IVPB Q8HR [facility] Rx#: [id number] Oral 840 / 840 600 / 600 240 / 240 Output: Urine 1075 / 1075 550 / 550 700 / 700 Other: Meal Dinner Breakfast Percent of Meal Consumed 100% Stool Size Small Stool Consistency loose Stool Color Brown # Bowel Movements 1 Weight 119.68 kg Patient Weight 04/03/16 23:59 Weight 119.68 kg - General physical appearance well developed, well nourished, no distress - Eyes normal ocular movement - ENT normal mucosa, atraumatic, normocephalic - Neck Neck exam: trachea midline - Respiratory normal respiratory effort, clear to auscultation - Cardiovascular Cardiovascular exam: Present: RRR - Abdomen Abdomen: Present: bowel sounds present, soft, tender (mildly) Abdominal Tenderness: LLQ, suprapubic - Integumentary no rash, no growths - Neurologic CN 2-12 grossly intact - Musculoskeletal normal gait, normal posture - Psychiatric oriented to time, oriented to person, oriented to place, speech is normal, memory intact - Labs 04/03/16 04:19 04/03/16 04:19 Diabetes panel 04/03/16 Range/Units 04:19 Sodium 137 (136-145) mEq/L Potassium 3.6 (3.5-4.5) mEq/L Chloride 104 (98-109) mEq/L Carbon Dioxide 25 (19-29) mEq/L BUN 10 (8-26) mg/dL Creatinine 0.87 (0.72-1.25) mg/dL Glucose 112 H (70-99) mg/dL Calcium 8.7 (8.6-10.8) mg/dL Calcium panel 04/03/16 Range/Units 04:19 Calcium 8.7 (8.6-10.8) mg/dL Phosphorus 3.9 (2.3-4.7) mg/dL Pituitary panel 04/03/16 Range/Units 04:19 Sodium 137 (136-145) mEq/L Potassium 3.6 (3.5-4.5) mEq/L Chloride 104 (98-109) mEq/L Carbon Dioxide 25 (19-29) mEq/L BUN 10 (8-26) mg/dL Creatinine 0.87 (0.72-1.25) mg/dL Glucose 112 H (70-99) mg/dL Calcium 8.7 (8.6-10.8) mg/dL Adrenal panel 04/03/16 Range/Units 04:19 Sodium 137 (136-145) mEq/L Potassium 3.6 (3.5-4.5) mEq/L Chloride 104 (98-109) mEq/L Carbon Dioxide 25 (19-29) mEq/L BUN 10 (8-26) mg/dL Creatinine 0.87 (0.72-1.25) mg/dL Glucose 112 H (70-99) mg/dL Calcium 8.7 (8.6-10.8) mg/dL Consult Discharge Plan - Plan Additional Instructions: Low residue diet for the next 6-8 weeks Referrals: Fawad Roth MD [Primary Care Provider] - Christopher Diaz MD [Partnered Physician] - 04/16/16 4:15 pm (hospital follow- up) Prescriptions: Ciprofloxacin HCl [Cipro] 500 mg PO BID #20 tablet MetroNIDAZOLE [Flagyl] 500 mg PO TID #30 tablet - Attending Attestation I examined this patient and my medical decision-making was reviewed with the TIMBER SPRINKLER/PA/Advanced Practice Nurse/Resident Physician. I agree with the documented findings, disposition and treatment plan as described except to the extent set forth below.
--- NOTE | 2016-04-03 12:19 | Internal Med Progress Note ---
Date of Encounter: 04/03/16 Time of Encounter: 12:18 - Assessment and plan (1) Acute diverticulitis Current Visit: Yes Status: Acute Assessment and plan: Surgical eval appreciated responding well to IV abx reports of having last colonoscopy 4-5years ago and states he knows he is due for one now will continue IV abx (Cipro and Flagyl) Will advance to low fiber diet Likely d/c in am pain control zofran prn n/v (2) Coronary artery disease Current Visit: No Status: Chronic Assessment and plan: no signs of angina present at this time will continue home medications Qualifiers: Coronary Disease-Associated Artery/Lesion type: [place] artery [place] vs. transplanted heart: [place] heart Associated angina: without angina Qualified Code(s): I25.10 - Atherosclerotic heart disease of [place] coronary artery without angina pectoris (3) Hyperlipidemia Current Visit: No Status: Chronic Assessment and plan: continue home medications Qualifiers: Hyperlipidemia type: unspecified Qualified Code(s): E78.5 - Hyperlipidemia , unspecified (4) Hypertension Current Visit: No Status: Chronic Assessment and plan: BP within acceptable range continue home medications Qualifiers: Hypertension type: essential hypertension Qualified Code(s): I10 - Essential (primary) hypertension (5) Tobacco use Current Visit: No Status: Chronic Assessment and plan: smoking cessation counseling provided reports of trying to quit refused nicotine replacement therapy (6) DVT prophylaxis Current Visit: Yes Status: Acute Assessment and plan: Lovenox SQ - Subjective Interval history: Patient seen and examined at bedside. Resting in bed and reports of improvement in his abdominal pain with complete resolution of her nausea. - Constitutional Vitals: Temp Pulse Resp BP Pulse Ox 97.9 F 78 15 132/75 96 04/03/16 11:14 04/03/16 11:14 04/03/16 11:14 04/03/16 11:14 04/03/16 11:14 General appearance: Present: A&O X 3, no acute distress, obese, answers questions appropriately - Head Head exam: Present: atraumatic, normocephalic - Eye Eye exam: Present: conjuntiva pink, sclera anicteric - Respiratory Respiratory exam: Present: CTAB. Absent: respiratory distress, wheezes - Cardiovascular Cardiovascular exam: Present: RRR, +S1, +S2 - GI/Abdominal GI/Abdominal exam: Present: normal bowel sounds, soft, tenderness (RLQ tenderness on deep palpation ) - Extremities Exam Extremities exam: Present: warm, radial pulses palpable and symetrical. Absent : calf tenderness, pedal edema - Neurological Exam Neurological exam: Present: alert, oriented X3 - Psychiatric Psychiatric exam: Present: normal affect, normal mood Internal Medicine: Result - Labs CBC & Chem 7: 04/03/16 04:19 04/03/16 04:19 Labs: Short CBC 04/03/16 Range/Units 04:19 WBC 10.5 (4.3-11.1) K/mcL Hgb 13.9 (12.9-16.9) g/dL Hct 39.1 (37.5-50.1) % Plt Count 146 (140-400) K/mcL Neutrophils # 8.1 (1.6-8.9) K/mcL BMP 04/03/16 04:19 Sodium 137 Potassium 3.6 Chloride 104 Carbon Dioxide 25 BUN 10 Creatinine 0.87 Glucose 112 H Calcium 8.7 Consult Discharge Plan - Plan Additional Instructions: Low residue diet for the next 6-8 weeks Referrals: Fawad Roth MD [Primary Care Provider] - 04/10/16 2:00 pm Christopher Diaz MD [Partnered Physician] - 04/16/16 4:15 pm (hospital follow- up) Prescriptions: Ciprofloxacin HCl [Cipro] 500 mg PO BID #20 tablet MetroNIDAZOLE [Flagyl] 500 mg PO TID #30 tablet
[2016-04-04] MEDS: *HR* Enoxaparin 40 MG/0.4 ML SYRINGE SQ SCH (05:32)
[2016-04-04 05:44] LABS: Basophils # 0.1 K/mcL (0.0-0.2); Basophils % 0.9 %; Eosinophils # 0.2 K/mcL (0.0-0.6); Eosinophils % 1.6 %; Hematocrit 38.4 % (37.5-50.1); Hemoglobin 13.7 g/dL (12.9-16.9); Immature Granulocytes % 3.5 % (0-4); Lymphocytes % 10.4 %; Mean Corpuscular HGB Conc 35.7 g/dL (31.6-35.5); Mean Corpuscular Hemoglobin 31.9 pg (28.0-33.3); Mean Corpuscular Volume 89.3 fL (83.0-100.0); Mean Platelet Volume 11.2 fL (9.4-12.4); Monocytes % 10.8 %; Neutrophils # 6.8 K/mcL (1.6-8.9); Platelet Count 161 K/mcL (140-400); Red Cell Distribution Width 11.1 % (11.5-14.5); Segmented Neutrophils % 72.8 %
[2016-04-04 06:10] LABS: BUN/Creatinine Ratio 10 (6-26); Blood Urea Nitrogen 10 mg/dL (8-26); Carbon Dioxide 26 mEq/L (19-29); Chloride 104 mEq/L (98-109); Glucose 105 mg/dL (70-99); Magnesium 1.5 mg/dL (1.6-2.6); Osmolality,Calculated 285 (280-300); Phosphorous 4.4 mg/dL (2.3-4.7); Potassium 3.9 mEq/L (3.5-4.5); Sodium 138 mEq/L (136-145); eGFR For African Americans > 60 (> 60); eGFR For Non-African Americans > 60 (> 60)
[2016-04-04 07:00] LABS: Platelet Estimate Normal (Normal); Reactive Lymphocytes Present (Not Present)
[2016-04-04] MEDS ORDERED: Magnesium Sulfate 1 GM in D5% in Water 100 ML IVPB ONE (08:00)
--- NOTE | 2016-04-04 09:47 | Discharge Summary ---
Date of Encounter: 04/04/16 Time of Encounter: 09:43 - Discharge Diagnosis (1) Acute diverticulitis Priority: Primary Status: Acute (2) Coronary artery disease Priority: Secondary Status: Chronic Qualifiers: Coronary Disease-Associated Artery/Lesion type: [place] artery [place] vs. transplanted heart: [place] heart Associated angina: without angina Qualified Code(s): I25.10 - Atherosclerotic heart disease of [place] coronary artery without angina pectoris (3) Hyperlipidemia Priority: Secondary Status: Chronic Qualifiers: Hyperlipidemia type: unspecified Qualified Code(s): E78.5 - Hyperlipidemia , unspecified (4) Hypertension Priority: Secondary Status: Chronic Qualifiers: Hypertension type: essential hypertension Qualified Code(s): I10 - Essential (primary) hypertension (5) Tobacco use Priority: Secondary Status: Chronic (6) DVT prophylaxis Priority: Secondary Status: Acute - Discharge Medications Prescriptions: Ciprofloxacin HCl [Cipro] 500 mg PO BID #20 tablet MetroNIDAZOLE [Flagyl] 500 mg PO TID #30 tablet Home Medications: Escitalopram [Lexapro] 10 mg PO DAILY 07/26/15 [History] Aspirin Enteric Coated [Aspirin EC] 81 mg PO DAILY #30 tablet.dr 07/28/15 [Rx] Atorvastatin [Lipitor] 40 mg PO HS #30 tablet 07/28/15 [Rx] Clopidogrel [Plavix] 75 mg PO DAILY #30 tablet 07/28/15 [Rx] Lisinopril [Zestril] 2.5 mg PO DAILY #30 tablet 07/28/15 [Rx] Nitroglycerin 0.4 mg SL Q5MIN PRN #30 tab.subl 07/28/15 [Rx] Cholecalciferol (D-3) [Vitamin D] 5,000 unit PO DAILY 03/31/16 [History] Flaxseed Oil 1,000 mg PO DAILY 03/31/16 [History] Metoprolol XL (24 HR) Succ [Toprol Xl] 25 mg PO DAILY 03/31/16 [History] Multivit-Min/FA/Lycopen/Lutein [Centrum Silver Men Tablet] 1 each PO DAILY 03/31 [History] Polyethylene Glycol 3350 [MiraLAX] 17 gm PO 1-2XD PRN 03/31/16 [History] Ciprofloxacin HCl [Cipro] 500 mg PO BID #20 tablet 04/03/16 [Rx] MetroNIDAZOLE [Flagyl] 500 mg PO TID #30 tablet 04/03/16 [Rx] Allergies/Adverse Reactions: Allergies No Known Allergies Allergy (Verified 07/26/15 05:30) Date of admission: 03/31/16 21:55 Primary care physician: Fawad Roth MD Consults: Surgery: Dr. Diaz Discharging clinician: Lalitha Marcano Anticipated date of discharge: 04/04/16 - Patient Status Disposition: Home, Self-Care Condition: Good Functional capacity at discharge: independent ambulation Overall status at discharge: patient is back to baseline - Discharge Instructions Follow Up With: Fawad Roth MD [Primary Care Provider] - 04/10/16 2:00 pm Christopher Diaz MD [Partnered Physician] - 04/16/16 4:15 pm (hospital follow- up) Additional Instructions: Please follow up with your primary care physician within one week after your discharge from the hospital. Please follow up with surgery within two weeks after your discharge from the hospital. Please continue to take oral antibiotics (Metronidazole and Ciprofloxacin) as prescribed. Please continue all your home medications as prescribed by your primary care physician. Continue Low Fiber diet for the next 6-8 weeks as per surgery. - Diet and Activity Activity: resume usual activities as tolerated Diet: other (LOW FIBER DIET) Hospital course: Mr. Dumont is a 56 year old male with PMH of hypertension, CAD, s/p MA with stent placement 08/07, HLD, tobacco abuse, obesity who presented to the ER for evaluation of abdominal pain. He was further admitted for management of acute diverticulitis. He was started on IV antibiotics and IV fluids. Patient remained NPO initially and diet was gradually advance as his symptoms improved. Surgical consultation was requested by the ER physician. No surgical intervention was recommended and an outpatient follow up for a colonoscopy in 6- 8weeks was recommended. At this time, patient is stable and asymptomatic. He is tolerating PO intake well and has no abdominal pain at this time. He will be discharged to home with oral antibiotics with follow up with his PCP within one week after his discharge from the hospital. Patient demonstrates understanding of his diagnosis and agrees with the discharge care and plan. - Time Spent with Patient Total time spent providing and/or coordinating discharge services: Less than 30 minutes - Constitutional Vitals: Temp Pulse Resp BP Pulse Ox 97.8 F 69 16 137/89 95 04/04/16 06:00 04/04/16 06:00 04/04/16 06:00 04/04/16 06:00 04/04/16 06:00 General appearance: Present: A&O X 3, no acute distress, obese, answers questions appropriately - Head Head exam: Present: atraumatic, normocephalic - Eye Eye exam: Present: normal appearance, conjuntiva pink, sclera anicteric - Respiratory Respiratory exam: Present: CTAB. Absent: accessory muscle use, rales, rhonchi, wheezes - Cardiovascular Cardiovascular exam: Present: RRR, +S1, +S2. Absent: diastolic murmur, gallop, rubs, systolic murmur - GI/Abdominal GI/Abdominal exam: Present: normal bowel sounds, soft, no peritoneal signs. Absent: distended, tenderness - Extremities Exam Extremities exam: Present: warm, radial pulses palpable and symetrical. Absent : calf tenderness, cyanotic, pedal edema - Neurological Exam Neurological exam: Present: alert, oriented X3 - Psychiatric Psychiatric exam: Present: normal affect, normal mood
[2016-04-04] MEDS: MetroNIDAZOLE 500 MG/100 ML 500 MG/100 ML BAG IVPB SCH (10:03)
[2016-04-04] MEDS: Aspirin Enteric Coated 81 MG Tablet PO SCH (10:04)
[2016-04-04] MEDS: Multivit/Ca/Min/Fe/FA 1 TAB TABLET PO SCH (10:05)
[2016-04-04] MEDS: Metoprolol XL (24 HR) Succ 25 MG TAB.ER.24H PO SCH (10:05)
[2016-04-04] MEDS: Nicotine 7 MG PATCH.TD24 TD SCH (10:13)
[2016-04-04 10:47] VITALS: BP 135/80
== END 2016-04-04 12:23 | disposition home or self-care (01) | DRG 392 ==
LOC: 3ANU 16:02 → EMEROO 16:02 → 3ANU 18:47
PROVIDERS: ADMIT Family Medicine; ATTEND Internal Medicine